=== PATIENT | female | born 1960 | race Caucasian/White ===

== ENCOUNTER → 2016-04-13 | Outpatient (CLI) | payer OTHER ==
[~2016-04-13] MED LIST: ACETAMINOPHEN PO; ASPIRIN EC81 M1 PO; BAYER CHEWABLE81 MG PO; CLOPIDOGREL75 MG PO; IMDUR-ER30 M2 PO; ISOSORBIDE MONO30 MG PO; LIPITOR20 MG PO; LIPITOR80 MG PO; LOTREL 5/101 CAP PO; METOPROLOL SUCC25 MG PO; METOPROLOL SUCC50 MG PO; NITROGLYGERIN0.4 MG SL; NORVASC PO; PRADAXA150 MG PO; TOPROL XL 50 MG50 MG PO; TOPROL XL50 MG PO
--- NOTE | ~2016-04-13 | US38 ---
[facility] A Service of [facility] RADIOLOGY TEXT RESULTS PATIENT: XOCHILT TAYLOR LOCATION: CNIV : 60 UNIT #: [id number] AGE: [address]: Sophia Hopper MD SEX: F ORDER DR: [id number] [facility] [address] [place], [place] [address] [id number] O MR#: [id number] Acc #: [id number] NAME: XOCHILT TAYLOR : 1960 SEX: F STUDY DATE/TIME: 04/13/2016 15:27 UNIT: CNIV ROOM: STUDY DESCRIPTION: US Carotid W/Doppler Unilatera Attending Physician: Sophia Hopper M.D. Referring Physician: Sophia Hopper M.D. Ordering Physician: Sophia Hopper M.D. Primary Care Physician: Primary Care Physician No MEDICAL IMAGING REPORT This report is preliminary unless electronic signature is present EXAM Left carotid duplex HISTORY Left carotid endarterectomy in February 2016. FINDINGS Images of the left carotid artery were reviewed. The left common carotid artery is patent. Internal and external carotid arteries are widely patent post endarterectomy. There appears to be some plaque in the left internal carotid artery proximally. Velocity in the left common carotid artery is 60, internal is 90 proximally, 91 midportion and 79 distally. External is 80 cm/sec. Left ICA:CCA ratio is 1.5. Antegrade flow is seen in the left vertebral artery. IMPRESSION Satisfactory appearance of the left common, internal and external carotid arteries post endarterectomy. There appears to be a mild plaque in the proximal internal carotid artery which may be at the bifurcation. Antegrade flow is seen in the left vertebral artery. Dictated by... Arnulfo Chatterjee M.D. THIS IS AN ELECTRONICALLY VERIFIED REPORT Arnulfo Chatterjee M.D. at 04/14/2016 9:10 AM /benson [facility] A Service [facility] RADIOLOGY TEXT RESULTS PATIENT: XOCHILT TAYLOR [id number] [birth year] UNIT #: [id number] AGE: [address]: Sophia Hopper MD SEX: F ORDER DR: TD: 04/14/2016 06:55 JOB #: [id number] MEDICAL IMAGING REPORT COPY
== END | disposition home or self-care (01) ==
LOC: CNIV 14:57
DX: I65.22 Occlusion and stenosis of left carotid artery (principal); Z98.890 Other specified postprocedural states
CPT/HCPCS: 93882

== ENCOUNTER 2016-09-05 02:03 | Emergency (ER) | payer OTHER ==
[~2016-09-05] VITALS: Ht 157.5 cm; Wt 85.3 kg
--- NOTE | ~2016-09-05 | CR72 ---
[facility] A Service of [facility] RADIOLOGY TEXT RESULTS PATIENT: XOCHILT TAYLOR LOCATION: SED : 60 UNIT #: [id number] AGE: [address]: Gilberto Ramirez MD SEX: F ORDER DR: [id number] [place] [id number] E MR#: [id number] Acc #: [id number] NAME: XOCHILT TAYLOR : 1960 SEX: F STUDY DATE/TIME: 09/05/2016 2:21 UNIT: SED ROOM: STUDY DESCRIPTION: CR Chest Single View Portable Attending Physician: Gilberto Ramirez M.D. Ordering Physician: Gilberto Ramirez M.D. Primary Care Physician: No Primary Care Physician MEDICAL IMAGING REPORT This report is preliminary unless electronic signature is present. EXAM AP portable chest. DATE 09/05/2016 HISTORY Chest pain radiating to the mid-back tonight since 2 a.m. COMPARISON PA and lateral chest radiograph, 02/28/2016. FINDINGS Heart size is mildly enlarged, but appears stable with signs of prior median sternotomy. Benign calcified granulomatous changes are present in the left apex and mild hilar regions. No acute airspace disease, pleural effusion or pneumothorax is evident. No acute osseous abnormalities are identified. No evidence of pulmonary edema. IMPRESSION 1. Stable mild cardiomegaly with median sternotomy. 2. Benign calcified granulomatous changes. 3. No acute chest findings. Dictated by... Chantel Melgoza M.D. THIS IS AN ELECTRONICALLY VERIFIED REPORT Chantel Melgoza M.D. at 09/05/2016 9:41 PM JORGE LUIS/corky TD: 09/05/2016 17:42 [facility] A Service [facility] RADIOLOGY TEXT RESULTS PATIENT: XOCHILT TAYLOR LOCATION: SED : 60 UNIT #: [id number] AGE: [address]: Gilberto Ramirez MD SEX: F ORDER DR: ELMER #: [id number] MEDICAL IMAGING REPORT Page 1 of 1
--- NOTE | ~2016-09-05 | EKG ---
PATIENT: XOCHILT TAYLOR UNIT #: [id number] Ventricular Rate: 69 BPM Atrial Rate: 69 BPM P-R Interval: 128 ms QRS Duration: 74 ms Q-T Interval: 416 ms QTC Calculation(Bezet): 445 ms P Gridley: 62 degrees Calculated R Gridley: 55 degrees Calculated T Gridley: 67 degrees Diagnosis Line: Normal sinus rhythm Diagnosis Line: Possible Left atrial enlargement Diagnosis Line: ST abnormality, possible digitalis effect Diagnosis Line: Abnormal ECG Diagnosis Line: When compared with ECG of 26-DEC-2015 06:03, Diagnosis Line: Non-specific change in ST segment in Lateral leads Diagnosis Line: Confirmed by RICARDO REN MD ([id number]) on Diagnosis Line: 09/07/2016 3:24:24 PM INTERPRETING MD: MIKAL VAZQUEZ
[~2016-09-05 02:03] MED LIST changes: -BAYER CHEWABLE81 MG PO; -ISOSORBIDE MONO30 MG PO; -LIPITOR80 MG PO; -TOPROL XL 50 MG50 MG PO
[2016-09-05] MEDS ORDERED: TOPROL XL 50 MG50 MG PO (02:21)
[2016-09-05] MEDS ORDERED: BAYER CHEWABLE81 MG PO (02:21)
[2016-09-05] MEDS ORDERED: LIPITOR80 MG PO (02:21)
[2016-09-05] MEDS ORDERED: PRADAXA150 MG PO (02:21)
[2016-09-05] MEDS ORDERED: ISOSORBIDE MONO30 MG PO (02:21)
[2016-09-05] MEDS ORDERED: NITROGLYGERIN0.4 MG SL (02:22)
[2016-09-05 02:27] LABS: BASOPHIL% 0.5 % (0-2.5); EOSINOPHIL# 0.2 X10e3 (0-0.7); EOSINOPHIL% 1.9 % (0.0-7.0); HEMATOCRIT 39.2 % (35.0-45.0); HEMOGLOBIN 12.7 gm/dL (12.0-16.0); LYMPHOCYTE# 2.8 X10e3 (1.0-3.5); MEAN CELL VOLUME 83.6 FL (83-96); MEAN CORPUSCULAR HGB CONC 32.3 g/dL (30-36); MEAN PLATELET VOLUME 9.8 FL (6.5-11.5); MONOCYTE# 0.8 X10e3 (0-1.0); MONOCYTE% 10.7 % (3.0-12.0); NEUTROPHIL# 4.1 X10e3 (1.5-7.1); NEUTROPHIL% 51.9 % (40-75); PLATELET COUNT 159 X10e3 (140-420); RED BLOOD COUNT 4.69 X10e (3.90-5.30); RED CELL DISTRIBUTION WIDTH 16.8 % (11.0-15.5); WHITE BLOOD COUNT 7.9 X10e3 (4.0-10.5)
[2016-09-05 02:28] LABS: DIFF IND NO
[2016-09-05 02:41] LABS: INR 1.3; PROTHROMBIN TIME (PATIENT) 14.6 SECONDS (9.5-12.4)
[2016-09-05 02:44] LABS: ALBUMIN SERUM 4.1 g/dL (3.5-5.0); ALKALINE PHOSPHATASE 106 U/L (32-92); ALT (SGPT) 25 U/L (10-40); AST (SGOT) 20 U/L (10-42); BILIRUBIN,TOTAL 0.3 mg/dL (0.2-2.0); BLOOD UREA NITROGEN 21 mg/dL (9-23); BUN/CREATININE RATIO 23.33; CALCIUM SERUM 9.1 mg/dL (8.4-10.2); CARBON DIOXIDE 27 mmol/L (22-31); CHLORIDE 105 mmol/L (100-111); CREATININE SERUM 0.9 mg/dL (0.6-1.4); GLOM FILT RATE Estimated 71.5 mL/min (>60); GLUCOSE FASTING 114 mg/dL (70-110); LIPASE 63 U/L (22-51); POTASSIUM 3.7 mmol/L (3.5-5.1); PROTEIN TOTAL SERUM 7.4 g/dL (6.0-8.3); SODIUM 140 mmol/L (135-145)
[2016-09-05 02:46] LABS: ALCOHOL BLOOD <5 mg/dL (0); BILIRUBIN, DIRECT <0.1 mg/dL (0.0-0.2); BILIRUBIN,INDIRECT 0.2 mg/dL (0.0-0.9)
[2016-09-05 02:48] LABS: PARTIAL THROMBOPLASTIN TIME 50.1 SECONDS (25.6-38.1)
[2016-09-05 04:21] LABS: POC - CKMB <1.0 ng/mL (0.0-7.9); POC - TROPONIN <0.05 ng/mL (<=0.05)
== END 2016-09-05 05:43 ==
LOC: SED 02:03
PROVIDERS: Emergency Medicine
DX: R07.9 Chest pain, unspecified (principal); I25.10 Atherosclerotic heart disease of native coronary artery without angina pectoris; E11.9 Type 2 diabetes mellitus without complications; I10 Essential (primary) hypertension; Z95.1 Presence of aortocoronary bypass graft
CPT/HCPCS: 36415; 71010; 80048; 80076; 82553; 83690; 84484; 85025; 85610; 85730; 93005; 96374; 96375; 99285; G0480; J2270; J2405